=== PATIENT | female | born 1995 | race African-American/Black ===

== ENCOUNTER 2018-01-09 17:44 | Emergency (ER) | payer OTHER ==
[~2018-01-09] VITALS: Ht 170.2 cm; Wt 110.0 kg
[2018-01-09 17:46] VITALS: BP 158/112
== END 2018-01-09 20:09 | disposition home or self-care (01) ==
LOC: ED 20:03
DX: S90.31XA Contusion of right foot, initial encounter (principal); X58.XXXA Exposure to other specified factors, initial encounter; Y93.89 Activity, other specified; Y92.89 Other specified places as the place of occurrence of the external cause; Y99.8 Other external cause status
CPT/HCPCS: 99284